=== PATIENT | male | born 1985 | race Caucasian/White ===

== ENCOUNTER → 2024-08-03 19:10 | Outpatient (REF) | payer OTHER, SELFPAY | LOC: MRI 19:10 | PROVIDERS: ATTENDING PHYSICIAN Physician Assistant Surgical; FAMILY PHYSICIAN Registered Nurse | DX: S83.411A Sprain of medial collateral ligament of right knee, initial encounter (principal); M23.91 Unspecified internal derangement of right knee | CPT/HCPCS: 73721 ==

== ENCOUNTER 2024-08-18 06:35 | Day surgery (SDC) | payer OTHER, SELFPAY ==
[2024-08-18] VITALS (11 sets, daily range): BP systolic 115–132; BP diastolic 68–90; BMI 32.3
[2024-08-18] MEDS: NORMOSOL-R/PLASMALYTE-A 1000 IV (10:41)
[2024-08-18] MEDS: CELEBREX 200 MG PO (10:42)
[2024-08-18] MEDS: TYLENOL 1000 MG PO (10:43)
== END 2024-08-18 14:14 | disposition home or self-care (01) ==
LOC: SDS 06:35
PROVIDERS: ATTENDING PHYSICIAN Specialist
DX: S83.231A Complex tear of medial meniscus, current injury, right knee, initial encounter (principal); X58.XXXA Exposure to other specified factors, initial encounter; M22.41 Chondromalacia patellae, right knee
CPT/HCPCS: 29881

== ENCOUNTER → 2025-05-24 07:26 | Outpatient (REF) | payer OTHER, SELFPAY | LOC: RCS 07:26 | PROVIDERS: ATTENDING PHYSICIAN Internal Medicine; FAMILY PHYSICIAN Registered Nurse | DX: R06.02 Shortness of breath (principal) | CPT/HCPCS: 93306 ==

== ENCOUNTER → 2025-05-31 09:20 | Outpatient (REF) | payer OTHER, SELFPAY | LOC: DHSLP 09:20 | PROVIDERS: ATTENDING PHYSICIAN Internal Medicine; FAMILY PHYSICIAN Registered Nurse | DX: G47.30 Sleep apnea, unspecified (principal); R06.83 Snoring | CPT/HCPCS: 95810 ==